=== PATIENT | male | born 1975 | race Caucasian/White ===

== ENCOUNTER → 2017-07-01 | Day surgery (SDC) | payer BC ==
[~2017-07-01] MED LIST: BENTYL20 MG PO; DICYCLOMINE HCL20 MG PO; MULTIVITAMINS1 EAC3; NO MEDICATIONS; PRILOSEC PO; VITAMIN B12; ZYRTEC10 M2 PO
--- NOTE | ~2017-07-01 | OR ---
Unit #: [id number] #: [id number] Patient: MARIAH CLAY [id number] [address] [address] [id number] O MR#: [id number] NAME: MARIAH CLAY ROOM: Date of Procedure: 07/01/2017 Admission Date: 07/01/2017 Surgeon: Neto Lamb M.D. : 1975 Attending Physician: Neto Lamb M.D. Referring Physician: Neto Lamb M.D. Primary Care Physician: Reji Puga M.D. OPERATIVE REPORT PREOPERATIVE DIAGNOSES Dyspepsia, heartburn, retrosternal pain, and epigastric pain. PROCEDURES PERFORMED Upper gastrointestinal endoscopy and biopsy. POSTOPERATIVE DIAGNOSES 1. The patient had grade 2 distal erosive esophagitis. 2. There was mild prepyloric antral erosive gastritis. 3. Rest of examination up to third part of duodenum was normal. A biopsy obtained from the antrum for CLOtest. RECOMMENDATIONS 1. Pantoprazole 40 mg p.o. daily. 2. The patient will be followed up in the office in 10 to 12 weeks' time. SEDATION USED MAC. DESCRIPTION OF PROCEDURE Following detailed explanation of the potential risks and complications of an upper endoscopy, namely perforation, bleeding, and complications related to sedation, the patient was brought to GI lab and laid in the left lateral decubitus position. Lubricated tip of the Olympus video upper endoscope was passed through the bite block into the proximal esophagus under direct vision. The entire esophageal mucosa was examined and the patient was noted to have grade 2 distal erosive esophagitis. The scope was then advanced into the gastric cavity and the latter was insufflated. Mucosa of the fundus, body, and antrum was examined and mild prepyloric antral erosive gastritis noted. This was in the form of erosions in the antral area. Pylorus was intubated with visualization of the normal duodenal bulb and second and third part of the duodenum. Upon withdrawal and retroflexion, incisura, cardia, and greater curve examined and a biopsy obtained from the antrum for CLOtest. The scope was then withdrawn in the distal esophagus. The entire esophageal mucosa was examined all the way up to pharynx. No additional findings noted. The patient tolerated the procedure without any postprocedure complications. Dictated by... Neto Lamb M.D. Unit #: [id number] #: [id number] Patient: MARIAH CLAY URI/marilyn TD: 07/01/2017 21:00 JOB #: [id number] CC: Reji Puga M.D. OPERATIVE REPORT Page 1 of 1 X Neto Lamb MD X PROCEDURE OPERATIVE NOTE
== END | disposition home or self-care (01) ==
LOC: COPS 13:07
DX: K21.0 Gastro-esophageal reflux disease with esophagitis (principal); K29.00 Acute gastritis without bleeding; Z87.19 Personal history of other diseases of the digestive system; Z98.890 Other specified postprocedural states
CPT/HCPCS: 87077; J2250